=== PATIENT | female | born 1970 ===

== ENCOUNTER 2022-09-06 07:50 | Outpatient (CLI) | payer OTHER | END 2022-09-06 08:07 | disposition home or self-care (01) | LOC: SONOGRAMA 07:50 | PROVIDERS: ATTEND Internal Medicine Gastroenterology | DX: R16.0 Hepatomegaly, not elsewhere classified (principal) ==

== ENCOUNTER 2023-04-26 07:38 | Outpatient (CLI) | payer OTHER | END 2023-04-26 07:48 | disposition home or self-care (01) | LOC: SONOGRAMA 07:38 | PROVIDERS: ATTEND Neurological Surgery | DX: M25.512 Pain in left shoulder (principal) ==